=== PATIENT | female | born 2000 | race Two or more races ===

== ENCOUNTER 2024-11-02 21:30 | Emergency (ER) | payer OTHER ==
[~2024-11-02] VITALS: Ht 154.9 cm; Wt 67.7 kg
[2024-11-02 22:13] VITALS: BP 129/86; PULSE 85; RESP 18; TEMP 97.7; O2SAT 96
== END 2024-11-03 00:10 | disposition left against medical advice (07) ==
LOC: EMS 21:30
DX: R07.81 Pleurodynia (principal); Z53.21 Procedure and treatment not carried out due to patient leaving prior to being seen by health care provider